=== PATIENT | female | born 1935 | race Caucasian/White ===

== ENCOUNTER 2023-06-24 01:38 | Day surgery (SDC) | payer MEDICARE, SELFPAY ==
--- NOTE | 2023-06-17 10:22 | PC.NURSE ---
Report to the Outpatient Waiting Room, entrance under the green pavilion located off [facility], at time _0930 on date ___06/24/23____. Planned Procedure Time: _1030 . Time changes happen often and if your time is changed the preop area will call you the afternoon before. - You and your visitor will be asked to self-screen and do not enter if you have any COVID symptoms. - A mask is optional within the hospital at this time. Patients may LIGHT BREAKFAST MORNING OF SURGERY Take the following medications with a SIP of water the morning of surgery: ALL ROUTINE MORNING MEDICATIONS DO NOT STOP ANY OF YOUR OTHER PRESCRIPTION MEDICATIONS PRIOR TO SURGERY ?EXCEPT THE FOLLOWING Medications to discontinue per physician NONE Date to take last dose Please no make-up, nail icelandic, hairspray, perfume, deodorant, or body powder the day of surgery. No jewelry (including any body piercings) or valuables the day of surgery, leave them at home. Please take a shower or bath the night before, or the morning of, surgery with an antibacterial soap. Wear comfortable, loose fitting clothing. Children are encouraged to wear pajamas. - Jewelry must be removed prior to entering the operating room. Rings and piercings that are not removed may be cut off. - The hospital will not accept responsibility for valuables. - Please leave all valuables, including medications, at home the day of surgery. MAY DRIVE YOURSELF HOME- LOCAL ANESTHESIA Follow any additional instructions given to you from your surgeon. If you or anyone in your household have experienced Covid symptoms in the past week, please notify your surgeon or the nurse liaison at the phone number below for possible testing. Telephone instructions given to ___PATIENT and asked if any additional questions and then verbalized understanding. Patient advised to call surgeon office or pre surgery nurse liaison [phone] if any additional questions.
[2023-06-17 10:30] VITALS: BMI 39.3
[2023-06-24 10:00] VITALS: BP 123/83; PULSE 81; RESP 16; TEMP 36.5; O2SAT 95
--- NOTE | 2023-06-24 10:21 | WPDHPUPDATE1 ---
History and Physical Update Update Date/Time: 06/24/23 10:21 History and Physical has been reviewed, including an updated exam of the patient. There are NO changes in the patient's condition. Risks, benefits, and alternatives have been discussed and questions answered. Patient agrees to proceed with procedure.
[2023-06-24 10:35] VITALS: BP 153/70; PULSE 89; RESP 20; O2SAT 95
[2023-06-24 10:45] VITALS: BP 164/74; PULSE 91; RESP 20; O2SAT 95
[2023-06-24] MEDS: LIDO 1%/EPINEPHRINE 1:100,000 20 ML VIAL 5 ML INFILTRATE (10:48)
[2023-06-24 10:52] VITALS: BP 166/74; PULSE 92; RESP 20; O2SAT 96
[2023-06-24 11:00] VITALS: BP 137/64; PULSE 90; RESP 17
[2023-06-24 11:30] VITALS: BP 124/60; PULSE 91; RESP 18
--- NOTE | 2023-06-24 12:18 | P.OP_ITS ---
Procedure Note - Detailed Date of Procedure 06/24/23 Pre-op Diagnosis right carpal tunnel syndrome Post-op Diagnosis Same Procedure Performed Right open carpal tunnel release Surgeon Hari Mo MD Anesthesia Local Description of Procedure The right carpal tunnel site was marked on the patient with her consent in the holding area. She was taken to the operating room where she was placed supine on the operating table grade a time-out was held and confirmed. The site on the palm was marked for the incision. The extremity was prepped and draped in usual fashion. Local infiltration was done with 1% lidocaine with epinephrine. The tourniquet was not utilized. The incision was made as marked. 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 The 2 were incised with a 15. Blade opening the canal. Under direct vision the ligament was divided distally and proximally to completely release it. The unusual anatomy was noted. The skin was closed with interrupted 5 0 nylon suture. The usual bandage was applied. She is discharged with instructions in wound care an d follow-up. She already has a opioid analgesia get home. Estimated Blood Loss 1 Tourniquet Time 0 Drains No Packing No Pathology None sent Complications No immediate complications Condition Stable Disposition Same day
== END 2023-06-24 11:40 | disposition home or self-care (01) ==
PROVIDERS: PCP Family Medicine; Visit Provider Plastic Surgery
PROC: (CPT 64721; principal; 2023-06-24 10:15)
DX: G56.01 Carpal tunnel syndrome, right upper limb (principal)
CPT/HCPCS: 64721; A9270

== ENCOUNTER 2024-11-22 12:34 | Outpatient (CLI) | payer MEDICARE, SELFPAY ==
--- NOTE | 2024-11-22 14:15 | NEURO_ITS ---
Impression: # Complains of pain in both hands. Status post right Carpal Tunnel Release. ? # Bilateral Carpal Tunnel Syndrome, right more than left. ? # Bilateral Ulnar neuropathy, left more than right. ? # Needle/EMG exam abnormal. ? # Patient does have ulnar to median cross innervation. ?Nerve Conduction Studies Anti Sensory Summary Table ?Stim Site NR Peak (ms) P-T Amp (?V) Site1 Site2 Delta-P (ms) Dist (cm) Hao (m/s) Left Median Anti Sensory (2-3nd Digit) Wrist ? 5.3 15.8 Wrist 2-3nd Digit 5.3 14.0 26 Wrist ? 4.8 16.1 Wrist 2-3nd Digit 5.3 14.0 26 Right Median Anti Sensory (2-3nd Digit) Wrist ? 10.1 22.2 Wrist 2-3nd Digit 10.1 14.0 14 Wrist ? 10.5 22.2 Wrist 2-3nd Digit 10.1 14.0 14 Left Radial Anti Sensory (Base 1st Digit) Wrist ? 2.0 15.4 Wrist Base 1st Digit 2.0 0.0 Right Radial Anti Sensory (Base 1st Digit) Wrist ? 2.7 14.9 Wrist Base 1st Digit 2.7 0.0 Left Ulnar Anti Sensory (5th Digit) Wrist ? 3.0 35.8 Wrist 5th Digit 3.0 14.0 47 Right Ulnar Anti Sensory (5th Digit) Wrist ? 3.3 27.6 Wrist 5th Digit 3.3 14.0 42 Motor Summary Table ?Stim Site NR Onset (ms) O-P Amp (mV) Site1 Site2 Delta-0 (ms) Dist (cm) Hao (m/s) Left Median Motor (Abd Poll Brev) Wrist ? 4.8 0.3 Elbow Wrist 8.2 30.0 37 Elbow ? 13.0 0.3 Right Median Motor (Abd Poll Brev) Wrist ? 5.1 0.3 Elbow Wrist 5.1 28.0 55 Elbow ? 10.2 0.4 Left Ulnar Motor (Abd Dig Minimi) Wrist ? 2.8 3.4 A Elbow Wrist 8.8 31.0 35 A Elbow ? 11.6 1.7 B Elbow Wrist 5.2 20.0 38 B Elbow ? 8.0 2.4 Right Ulnar Motor (Abd Dig Minimi) Wrist ? 3.2 4.2 A Elbow Wrist 6.3 31.0 49 A Elbow ? 9.5 3.4 B Elbow Wrist 3.4 19.0 56 B Elbow ? 6.6 2.5 F Wave Studies ?NR F-Lat (ms) L-R F-Lat (ms) Left Median (Mrkrs) (Abd Poll Brev) ? 29.61 0.00 Right Median (Mrkrs) (Abd Poll Brev) ? 29.61 0.00 Left Ulnar (Mrkrs) (Abd Dig Min) ? 32.87 3.74 Right Ulnar (Mrkrs) (Abd Dig Min) ? 29.13 3.74 EMG ?Side Muscle Nerve Root Ins Act Fibs Amp Dur Recrt Comment Right 1stDorInt Ulnar C8-T1 Nml Nml Nml >12ms Nml Right Ext Indicis Radial (Post Int) C7-8 Nml Nml Nml Nml Nml Right Ext Digitorum Radial (Post Int) C7-8 Nml Nml Nml Nml Nml Right BrachioRad Radial C5-6 Nml Nml Nml Nml Nml Right PronatorTeres Median C6-7 Nml Nml Nml Nml Nml Right Abd Poll Brev Median C8-T1 Nml Nml Nml >12ms Nml Right ABD Dig Min Ulnar C8-T1 Nml Nml Nml >12ms Nml Left 1stDorInt Ulnar C8-T1 Nml Nml Nml >12ms Nml Left Ext Indicis Radial (Post Int) C7-8 Nml Nml Nml Nml Nml Left Ext Digitorum Radial (Post Int) C7-8 Nml Nml Nml Nml Nml Left BrachioRad Radial C5-6 Nml Nml Nml Nml Nml Left PronatorTeres Median C6-7 Nml Nml Nml Nml Nml Left Abd Poll Brev Median C8-T1 Nml Nml Nml >12ms Nml Left ABD Dig Min Ulnar C8-T1 Nml Nml Nml >12ms Nml MTDD
== END 2024-11-22 12:35 | disposition home or self-care (01) ==
LOC: ANHNEURO 12:35
PROVIDERS: PCP Family Medicine; Visit Provider Family Medicine
DX: G56.03 Carpal tunnel syndrome, bilateral upper limbs (principal); G56.23 Lesion of ulnar nerve, bilateral upper limbs
CPT/HCPCS: 95886; 95911